=== PATIENT | male | born 1965 | race Two or more races ===

== ENCOUNTER 2020-07-03 07:21 | Outpatient (CLI) | payer OTHER | END 2020-07-03 08:16 | disposition home or self-care (01) | LOC: NUCLEAR 07:21 | PROVIDERS: ATTEND Internal Medicine Cardiovascular Disease | DX: I20.9 Angina pectoris, unspecified (principal); I25.10 Atherosclerotic heart disease of native coronary artery without angina pectoris; I25.2 Old myocardial infarction; I11.9 Hypertensive heart disease without heart failure | CPT/HCPCS: 78452; 93017; A9500; J0153 ==